=== PATIENT | female | born 1980 | race Caucasian/White ===

== ENCOUNTER 2021-09-06 15:36 | Emergency (ER) | payer OTHER ==
[~2021-09-06] VITALS: Ht 170.2 cm; Wt 63.6 kg
[2021-09-06 16:17] VITALS: BP 101/64
[2021-09-06] MEDS ORDERED: ACETAMINOPHEN 500 MG TABLET PO ONE (16:30)
== END 2021-09-06 17:21 | disposition home or self-care (01) ==
LOC: EMS 15:39
DX: R07.2 Precordial pain (principal); F11.90 Opioid use, unspecified, uncomplicated; Z90.89 Acquired absence of other organs; Z87.891 Personal history of nicotine dependence; Z88.6 Allergy status to analgesic agent
CPT/HCPCS: 71045; 93005; 99283

== ENCOUNTER 2021-12-19 08:07 | Inpatient (IN) | payer MEDICAID, OTHER ==
[~2021-12-19] VITALS: Ht 170.2 cm; Wt 80.1 kg
[2021-12-19] MEDS ORDERED: HALOPERIDOL 5 MG TABLET PO ONE (09:15)
[2021-12-19] MEDS ORDERED: LORazepam 1 MG TABLET PO ONE (09:15)
[2021-12-19 10:12] LABS: BASOPHILS % (AUTO) 0.3 % (0.0-2.0); EOSINOPHILS % (AUTO) 1.4 % (1.0-6.0); HEMATOCRIT 33.2 % (36-46); LYMPHOCYTES # (AUTO) 1.4 K/uL (1.0-4.8); LYMPHOCYTES % (AUTO) 20.1 % (22.0-44.0); MEAN CORPUSCULAR HEMOGLOBIN 29.6 pg (26.0-34.0); MEAN CORPUSCULAR HGB CONC 33.1 G/dL (31.0-37.0); MEAN CORPUSCULAR VOLUME 90 fL (80-100); MONOCYTES # (AUTO) 0.8 K/uL (0.1-1.0); MONOCYTES % (AUTO) 10.9 % (2.0-9.0); NEUTROPHILS # (AUTO) 4.7 K/uL (1.8-7.7); NEUTROPHILS % (AUTO) 67.3 % (40.0-70.0); PLATELET COUNT (AUTO) 281 K/uL (150-450); RED CELL DISTRIBUTION WIDTH 16.2 % (11.5-14.5)
[2021-12-19] MEDS ORDERED: TUBERCULIN, PURIFIED PROTEIN DERIVATIVE 5 TU/0.1 ML SYRINGE ID ONE (10:15)
[2021-12-19] MEDS ORDERED: HydrOXYzine PAMOATE 50 MG CAPSULE PO PRN (10:15)
[2021-12-19] MEDS ORDERED: PROMETHAZINE HCL 25 MG TABLET PO PRN (10:15)
[2021-12-19] MEDS ORDERED: GuaiFENesin/D-METHORPHAN [SUGAR-FREE] 200-20MG/10 ML SYRUP UDCUP PO PRN (10:15)
[2021-12-19 10:22] LABS: ANION GAP 9 mmol/L (8-16); CALCIUM, TOTAL 8.7 mg/dL (8.8-10.5); CARBON DIOXIDE 28 mmol/L (22-29); CHLORIDE 103 mmol/L (98-107); CREATININE 0.81 mg/dL (0.60-1.30); GLUCOSE,RANDOM 98 mg/dL (70-110); POTASSIUM 3.6 mmol/L (3.5-5.1); SODIUM SERUM 140 mmol/L (136-145); UREA NITROGEN, BLOOD 17 mg/dL (7-18)
[2021-12-19 10:23] LABS: GLOMERULAR FILTR. RATE CALC > 60 mL/min (>60)
[2021-12-19 10:27] LABS: ALANINE AMINOTRANSFERASE 28 U/L (12-78); ALBUMIN 3.8 g/dL (3.4-5.0); ASPARTATE AMINOTRANSFERASE 19 U/L (15-37); BILIRUBIN,TOTAL 0.2 mg/dL (0.1-1.0)
[2021-12-19 10:35] LABS: COVID AG,FIA SOURCE NASOPHARYNGEAL
[2021-12-19 10:38] LABS: ALKALINE PHOSPHATASE 88 U/L (46-116); TOTAL PROTEIN, SERUM 7.9 g/dL (6.4-8.2)
[2021-12-19 13:00] VITALS: BP 109/71
[2021-12-19 16:13] VITALS: BP 102/47
[2021-12-19] MEDS: THIAMINE 100 MG TABLET PO SCH (18:49)
[2021-12-19] MEDS: MELATONIN 5 MG TABLET PO SCH (20:32)
[2021-12-19] MEDS: DIVALPROEX SODIUM 500 MG ER TABLET PO SCH (20:32)
[2021-12-19] MEDS ORDERED: OLANZapine 5 MG RAPDIS TABLET PO SCH (21:00)
[2021-12-20 06:59] LABS: HEMOGLOBIN A1C 5.5 % (3.8-5.6)
[2021-12-20 07:22] LABS: CHOL/HDL RATIO 2.7 (3.9-5.7); FREE T4 (FREE THYROXINE) 0.96 ng/dL (0.76-1.46); THYROID STIMULATING HORMONE 1.93 uIU/mL (0.36-3.74)
[2021-12-20 08:00] VITALS: BP 98/48
[2021-12-20] MEDS: OMEGA-3/DHA/EPA/FISH OIL 1,000 MG CAPSULE PO SCH (10:01)
[2021-12-20] MEDS: MULTIVITAMINS WITH MINERALS, THERAPEUTIC TABLET PO SCH (10:01)
[2021-12-20] MEDS: THIAMINE 100 MG TABLET PO SCH ×2 (10:01→16:17)
[2021-12-20] MEDS: NALTREXONE HCL 50 MG TABLET PO SCH (10:02)
[2021-12-20] MEDS: FOLIC ACID 1 MG TABLET PO SCH (10:02)
[2021-12-20 16:07] VITALS: BP 100/63
[2021-12-20] MEDS: LORazepam 2 MG TABLET PO PRN (19:10)
[2021-12-20] MEDS: DIVALPROEX SODIUM 500 MG ER TABLET PO SCH (20:20)
[2021-12-20] MEDS: MELATONIN 5 MG TABLET PO SCH (20:20)
[2021-12-20] MEDS: OLANZapine 10 MG RAPDIS TABLET PO SCH (20:21)
[2021-12-20] MEDS: ZOLPIDEM TARTRATE 10 MG TABLET PO PRN (23:12)
[2021-12-21] MEDS: LORazepam 2 MG TABLET PO PRN ×2 (00:30→16:21)
[2021-12-21] MEDS: FOLIC ACID 1 MG TABLET PO SCH (09:14)
[2021-12-21] MEDS: OMEGA-3/DHA/EPA/FISH OIL 1,000 MG CAPSULE PO SCH (09:14)
[2021-12-21] MEDS: MULTIVITAMINS WITH MINERALS, THERAPEUTIC TABLET PO SCH (09:14)
[2021-12-21] MEDS: THIAMINE 100 MG TABLET PO SCH ×2 (09:14→17:32)
[2021-12-21] MEDS: NALTREXONE HCL 50 MG TABLET PO SCH (09:15)
[2021-12-21 09:25] VITALS: BP 101/79
[2021-12-21] MEDS: OLANZapine 10 MG RAPDIS TABLET PO SCH (20:59)
[2021-12-21] MEDS: MELATONIN 5 MG TABLET PO SCH (20:59)
[2021-12-21] MEDS: DIVALPROEX SODIUM 500 MG ER TABLET PO SCH (20:59)
[2021-12-21] MEDS: ZOLPIDEM TARTRATE 10 MG TABLET PO PRN (22:34)
[2021-12-22 08:30] VITALS: BP 132/78
[2021-12-22] MEDS ORDERED: FLUoxetine HCL 20 MG CAPSULE PO SCH (09:00)
[2021-12-22] MEDS: FOLIC ACID 1 MG TABLET PO SCH (09:09)
[2021-12-22] MEDS: THIAMINE 100 MG TABLET PO SCH ×2 (09:09→16:28)
[2021-12-22] MEDS: OMEGA-3/DHA/EPA/FISH OIL 1,000 MG CAPSULE PO SCH (09:09)
[2021-12-22] MEDS: MULTIVITAMINS WITH MINERALS, THERAPEUTIC TABLET PO SCH (09:09)
[2021-12-22] MEDS: NALTREXONE HCL 50 MG TABLET PO SCH (09:10)
[2021-12-22] MEDS: LORazepam 2 MG TABLET PO PRN (12:43)
[2021-12-22 16:17] VITALS: BP 121/80
[2021-12-22] MEDS: DIVALPROEX SODIUM 500 MG ER TABLET PO SCH (20:32)
[2021-12-22] MEDS: MELATONIN 5 MG TABLET PO SCH (20:32)
[2021-12-22] MEDS: OLANZapine 10 MG RAPDIS TABLET PO SCH (20:33)
[2021-12-23] MEDS: MULTIVITAMINS WITH MINERALS, THERAPEUTIC TABLET PO SCH (08:38)
[2021-12-23] MEDS: FOLIC ACID 1 MG TABLET PO SCH (08:39)
[2021-12-23] MEDS: OMEGA-3/DHA/EPA/FISH OIL 1,000 MG CAPSULE PO SCH (08:39)
[2021-12-23] MEDS: NALTREXONE HCL 50 MG TABLET PO SCH (08:39)
[2021-12-23] MEDS: THIAMINE 100 MG TABLET PO SCH ×2 (08:39→16:54)
[2021-12-23] MEDS: FLUoxetine HCL 20 MG CAPSULE PO SCH (08:40)
[2021-12-23 09:04] VITALS: BP 113/71
[2021-12-23] MEDS: LORazepam 2 MG TABLET PO PRN (14:37)
[2021-12-23 16:16] VITALS: BP 110/71
[2021-12-23] MEDS: MELATONIN 5 MG TABLET PO SCH (20:27)
[2021-12-23] MEDS: DIVALPROEX SODIUM 500 MG ER TABLET PO SCH (20:27)
[2021-12-23] MEDS: OLANZapine 10 MG RAPDIS TABLET PO SCH (20:27)
[2021-12-23] MEDS: ZOLPIDEM TARTRATE 10 MG TABLET PO PRN (21:32)
[2021-12-24 08:00] VITALS: BP 104/65
[2021-12-24] MEDS: NALTREXONE HCL 50 MG TABLET PO SCH (08:18)
[2021-12-24] MEDS: THIAMINE 100 MG TABLET PO SCH ×2 (08:18→16:13)
[2021-12-24] MEDS: FLUoxetine HCL 20 MG CAPSULE PO SCH (08:18)
[2021-12-24] MEDS: MULTIVITAMINS WITH MINERALS, THERAPEUTIC TABLET PO SCH (08:18)
[2021-12-24] MEDS: FOLIC ACID 1 MG TABLET PO SCH (08:18)
[2021-12-24] MEDS: OMEGA-3/DHA/EPA/FISH OIL 1,000 MG CAPSULE PO SCH (08:18)
[2021-12-24 16:00] VITALS: BP 115/71
[2021-12-24] MEDS: LORazepam 2 MG TABLET PO PRN (16:13)
[2021-12-24] MEDS: TraZODone HCL 100 MG TABLET PO SCH ×2 (20:23→21:53)
[2021-12-24] MEDS: MELATONIN 5 MG TABLET PO SCH (20:23)
[2021-12-24] MEDS: OLANZapine 10 MG RAPDIS TABLET PO SCH (20:24)
[2021-12-24] MEDS: DIVALPROEX SODIUM 500 MG ER TABLET PO SCH (20:24)
[2021-12-25 06:47] LABS: COVID AG,FIA SOURCE NASAL SWAB
[2021-12-25] MEDS: LORazepam 2 MG TABLET PO PRN (07:13)
[2021-12-25 08:00] VITALS: BP 101/69
[2021-12-25] MEDS: OMEGA-3/DHA/EPA/FISH OIL 1,000 MG CAPSULE PO SCH (09:02)
[2021-12-25] MEDS: THIAMINE 100 MG TABLET PO SCH ×2 (09:02→16:40)
[2021-12-25] MEDS: FLUoxetine HCL 20 MG CAPSULE PO SCH (09:02)
[2021-12-25] MEDS: MULTIVITAMINS WITH MINERALS, THERAPEUTIC TABLET PO SCH (09:03)
[2021-12-25] MEDS: LORATADINE 10 MG TABLET PO SCH (09:03)
[2021-12-25] MEDS: FOLIC ACID 1 MG TABLET PO SCH (09:03)
[2021-12-25] MEDS: NALTREXONE HCL 50 MG TABLET PO SCH (09:03)
[2021-12-25 16:00] VITALS: BP 114/80
[2021-12-25 18:06] VITALS: BP 119/79
[2021-12-25] MEDS: LORazepam 0.5 MG TABLET PO PRN (18:06)
[2021-12-25] MEDS: ZOLPIDEM TARTRATE 10 MG TABLET PO PRN (21:14)
[2021-12-25] MEDS: DIVALPROEX SODIUM 500 MG ER TABLET PO SCH (21:25)
[2021-12-25] MEDS: OLANZapine 10 MG RAPDIS TABLET PO SCH (21:26)
[2021-12-25] MEDS: TraZODone HCL 100 MG TABLET PO SCH (21:26)
[2021-12-25] MEDS: MELATONIN 5 MG TABLET PO SCH (21:26)
[2021-12-26 04:25] VITALS: BP 98/56
[2021-12-26 08:00] VITALS: BP 138/89
[2021-12-26] MEDS: OMEGA-3/DHA/EPA/FISH OIL 1,000 MG CAPSULE PO SCH (08:52)
[2021-12-26] MEDS: OLANZapine 5 MG RAPDIS TABLET PO PRN ×2 (08:52→13:58)
[2021-12-26] MEDS: FOLIC ACID 1 MG TABLET PO SCH (08:52)
[2021-12-26] MEDS: MULTIVITAMINS WITH MINERALS, THERAPEUTIC TABLET PO SCH (08:52)
[2021-12-26] MEDS: LORATADINE 10 MG TABLET PO SCH (08:52)
[2021-12-26] MEDS: LORazepam 0.5 MG TABLET PO PRN ×3 (08:52→22:41)
[2021-12-26] MEDS: THIAMINE 100 MG TABLET PO SCH ×2 (08:53→16:35)
[2021-12-26] MEDS: FLUoxetine HCL 20 MG CAPSULE PO SCH (08:53)
[2021-12-26] MEDS: NALTREXONE HCL 50 MG TABLET PO SCH (08:56)
[2021-12-26] MEDS: IBUPROFEN 600 MG TABLET PO PRN (11:45)
[2021-12-26] MEDS: BENZOCAINE 10% 7 GM GEL TP PRN (13:58)
[2021-12-26 16:00] VITALS: BP 95/69
[2021-12-26] MEDS: LURASIDONE HCL 40 MG TABLET PO SCH (17:18)
[2021-12-26] MEDS: DIVALPROEX SODIUM 500 MG ER TABLET PO SCH (20:11)
[2021-12-26] MEDS: MELATONIN 5 MG TABLET PO SCH (20:11)
[2021-12-26] MEDS: TraZODone HCL 100 MG TABLET PO SCH ×2 (20:14→21:14)
[2021-12-26 22:04] VITALS: BP 110/70
[2021-12-27] MEDS: OLANZapine 5 MG RAPDIS TABLET PO PRN ×2 (03:34→08:30)
[2021-12-27] MEDS: FOLIC ACID 1 MG TABLET PO SCH (08:26)
[2021-12-27] MEDS: OMEGA-3/DHA/EPA/FISH OIL 1,000 MG CAPSULE PO SCH (08:26)
[2021-12-27] MEDS: MULTIVITAMINS WITH MINERALS, THERAPEUTIC TABLET PO SCH (08:26)
[2021-12-27] MEDS: LORazepam 0.5 MG TABLET PO PRN ×2 (08:26→14:43)
[2021-12-27] MEDS: FLUoxetine HCL 20 MG CAPSULE PO SCH (08:26)
[2021-12-27] MEDS: NALTREXONE HCL 50 MG TABLET PO SCH (08:26)
[2021-12-27] MEDS: LORATADINE 10 MG TABLET PO SCH (08:26)
[2021-12-27] MEDS: THIAMINE 100 MG TABLET PO SCH ×2 (08:26→16:15)
[2021-12-27] MEDS ORDERED: BuPROPion HCL XL 150 MG ER TABLET PO SCH (09:00)
[2021-12-27 09:21] VITALS: BP 116/64
[2021-12-27] MEDS: BENZOCAINE 10% 7 GM GEL TP PRN ×2 (09:24→17:50)
[2021-12-27] MEDS: IBUPROFEN 600 MG TABLET PO PRN ×2 (09:24→20:07)
[2021-12-27 16:00] VITALS: BP 113/65
[2021-12-27] MEDS: LURASIDONE HCL 40 MG TABLET PO SCH (16:15)
[2021-12-27] MEDS ORDERED: LURASIDONE HCL 20 MG TABLET PO PRN (17:45)
[2021-12-27] MEDS: MELATONIN 5 MG TABLET PO SCH (20:04)
[2021-12-27] MEDS: TraZODone HCL 100 MG TABLET PO SCH (20:04)
[2021-12-27] MEDS: DIVALPROEX SODIUM 500 MG ER TABLET PO SCH (20:04)
[2021-12-27 21:00] LABS: APPEARANCE,URINE CLEAR (CLEAR); BILIRUBIN,URINE NEGATIVE (NEGATIVE); GLUCOSE, URINE (UA) NEGATIVE (NEGATIVE); KETONES,URINE TRACE mg/dL (NEGATIVE); LEUKOCYTE ESTERASE ,URINE LARGE (NEGATIVE); NITRATE,URINE NEGATIVE (NEGATIVE); OCCULT BLOOD,URINE NEGATIVE (NEGATIVE); PH,URINE 6.5 (5.0-8.0); PROTEIN,URINE NEGATIVE (NEGATIVE); SPECIFIC GRAVITIY, URINE 1.016 (1.003-1.030); UROBILINOGEN,URINE <=1.0 mg/dL (<=1.0)
[2021-12-27 21:09] LABS: BACTERIA,URINE Few /HPF (None Seen); RBC,URINE 0-2 /HPF (0-2); SQUAMOUS EPITHELIAL CELL,UR Moderate /LPF (None Seen); WBC,URINE 26-50 /HPF (0-5)
[2021-12-28] MEDS: LORazepam 0.5 MG TABLET PO PRN ×3 (00:10→14:50)
[2021-12-28] MEDS: BENZOCAINE 10% 7 GM GEL TP PRN ×2 (04:39→12:30)
[2021-12-28 06:40] VITALS: BP 120/70
[2021-12-28] MEDS: IBUPROFEN 600 MG TABLET PO PRN ×3 (06:45→19:44)
[2021-12-28 07:45] VITALS: BP 100/62
[2021-12-28] MEDS: THIAMINE 100 MG TABLET PO SCH ×2 (08:23→17:01)
[2021-12-28] MEDS: BuPROPion HCL XL 150 MG ER TABLET PO SCH (08:24)
[2021-12-28] MEDS: FLUoxetine HCL 20 MG CAPSULE PO SCH (08:24)
[2021-12-28] MEDS: MULTIVITAMINS WITH MINERALS, THERAPEUTIC TABLET PO SCH (08:24)
[2021-12-28] MEDS: OMEGA-3/DHA/EPA/FISH OIL 1,000 MG CAPSULE PO SCH (08:24)
[2021-12-28] MEDS: FOLIC ACID 1 MG TABLET PO SCH (08:24)
[2021-12-28] MEDS: LORATADINE 10 MG TABLET PO SCH (08:24)
[2021-12-28] MEDS: NALTREXONE HCL 50 MG TABLET PO SCH (08:24)
[2021-12-28 13:04] VITALS: BP 116/74
[2021-12-28 16:44] VITALS: BP 109/60
[2021-12-28] MEDS ORDERED: LURASIDONE HCL 60 MG TABLET PO SCH (17:30)
[2021-12-28] MEDS ORDERED: ACETAMINOPHEN 325 MG TABLET PO PRN (19:15)
[2021-12-28] MEDS: TraZODone HCL 100 MG TABLET PO SCH (20:06)
[2021-12-28] MEDS: MELATONIN 5 MG TABLET PO SCH (20:06)
[2021-12-28] MEDS: DIVALPROEX SODIUM 500 MG ER TABLET PO SCH (20:07)
[2021-12-28] MEDS: MAGNESIUM HYDROXIDE SUSPENSION 30 ML UDCUP PO PRN (20:42)
[2021-12-28] MEDS: ZOLPIDEM TARTRATE 10 MG TABLET PO PRN (21:55)
[2021-12-29] MEDS: LORazepam 0.5 MG TABLET PO PRN ×3 (03:47→18:45)
[2021-12-29] MEDS: NALTREXONE HCL 50 MG TABLET PO SCH (08:13)
[2021-12-29] MEDS: OMEGA-3/DHA/EPA/FISH OIL 1,000 MG CAPSULE PO SCH (08:13)
[2021-12-29] MEDS: DOCUSATE SODIUM 250 MG CAPSULE PO SCH (08:13)
[2021-12-29] MEDS: LORATADINE 10 MG TABLET PO SCH (08:13)
[2021-12-29] MEDS: BuPROPion HCL XL 150 MG ER TABLET PO SCH (08:13)
[2021-12-29] MEDS: FOLIC ACID 1 MG TABLET PO SCH (08:13)
[2021-12-29] MEDS: THIAMINE 100 MG TABLET PO SCH (08:14)
[2021-12-29] MEDS: FLUoxetine HCL 20 MG CAPSULE PO SCH (08:14)
[2021-12-29] MEDS: MULTIVITAMINS WITH MINERALS, THERAPEUTIC TABLET PO SCH (08:14)
[2021-12-29] MEDS: BENZOCAINE 10% 7 GM GEL TP PRN (08:15)
[2021-12-29 08:17] VITALS: BP 106/71
[2021-12-29] MEDS: IBUPROFEN 600 MG TABLET PO PRN ×2 (08:17→14:31)
[2021-12-29 08:23] VITALS: BP 106/71
[2021-12-29 09:17] VITALS: BP 110/74
[2021-12-29 14:31] VITALS: BP 116/72
[2021-12-29] MEDS: MAGNESIUM HYDROXIDE SUSPENSION 30 ML UDCUP PO PRN (16:34)
[2021-12-29 17:01] VITALS: BP 122/71
[2021-12-29] MEDS: LURASIDONE HCL 80 MG TABLET PO SCH (18:43)
[2021-12-29] MEDS: DIVALPROEX SODIUM 500 MG ER TABLET PO SCH (20:23)
[2021-12-29] MEDS: MELATONIN 5 MG TABLET PO SCH (20:23)
[2021-12-29] MEDS: TraZODone HCL 100 MG TABLET PO SCH (20:24)
[2021-12-29] MEDS: ZOLPIDEM TARTRATE 10 MG TABLET PO PRN (20:24)
[2021-12-30] MEDS: LORazepam 0.5 MG TABLET PO PRN ×3 (00:11→14:14)
[2021-12-30 01:20] VITALS: BP 109/67
[2021-12-30] MEDS: IBUPROFEN 600 MG TABLET PO PRN ×2 (01:26→10:29)
[2021-12-30] MEDS: BuPROPion HCL XL 150 MG ER TABLET PO SCH (08:03)
[2021-12-30] MEDS: NALTREXONE HCL 50 MG TABLET PO SCH (08:03)
[2021-12-30] MEDS: FLUoxetine HCL 20 MG CAPSULE PO SCH (08:03)
[2021-12-30] MEDS: LORATADINE 10 MG TABLET PO SCH (08:03)
[2021-12-30] MEDS: DOCUSATE SODIUM 250 MG CAPSULE PO SCH (08:03)
[2021-12-30] MEDS: MULTIVITAMINS WITH MINERALS, THERAPEUTIC TABLET PO SCH (08:03)
[2021-12-30] MEDS: OMEGA-3/DHA/EPA/FISH OIL 1,000 MG CAPSULE PO SCH (08:03)
[2021-12-30 10:07] VITALS: BP 114/77
[2021-12-30] MEDS: BENZOCAINE 10% 7 GM GEL TP PRN ×2 (10:29→23:34)
[2021-12-30 11:29] VITALS: BP 110/78
[2021-12-30] MEDS: NICOTINE 21 MG/24 HOUR PATCH TD SCH (11:39)
[2021-12-30] MEDS ORDERED: DOCUSATE SODIUM 250 MG CAPSULE PO SCH (11:45)
[2021-12-30] MEDS: LURASIDONE HCL 80 MG TABLET PO SCH (15:49)
[2021-12-30] MEDS: MAGNESIUM HYDROXIDE SUSPENSION 30 ML UDCUP PO PRN (15:49)
[2021-12-30 16:27] VITALS: BP 93/60
[2021-12-30] MEDS: GABAPENTIN 100 MG CAPSULE PO SCH ×2 (18:37→20:10)
[2021-12-30] MEDS: TraZODone HCL 100 MG TABLET PO SCH (20:10)
[2021-12-30] MEDS: DIVALPROEX SODIUM 500 MG ER TABLET PO SCH (20:10)
[2021-12-30] MEDS: MELATONIN 5 MG TABLET PO SCH (20:12)
[2021-12-30] MEDS: ZOLPIDEM TARTRATE 10 MG TABLET PO PRN (20:13)
[2021-12-31 05:48] VITALS: BP 94/60
[2021-12-31] MEDS: LORATADINE 10 MG TABLET PO SCH (08:13)
[2021-12-31] MEDS: NALTREXONE HCL 50 MG TABLET PO SCH (08:13)
[2021-12-31] MEDS: NICOTINE 21 MG/24 HOUR PATCH TD SCH (08:14)
[2021-12-31] MEDS: DOCUSATE SODIUM 250 MG CAPSULE PO SCH (08:14)
[2021-12-31] MEDS: MULTIVITAMINS WITH MINERALS, THERAPEUTIC TABLET PO SCH (08:14)
[2021-12-31] MEDS: GABAPENTIN 100 MG CAPSULE PO SCH ×4 (08:14→21:22)
[2021-12-31] MEDS: BuPROPion HCL XL 150 MG ER TABLET PO SCH (08:14)
[2021-12-31] MEDS: FLUoxetine HCL 20 MG CAPSULE PO SCH (08:14)
[2021-12-31] MEDS: OMEGA-3/DHA/EPA/FISH OIL 1,000 MG CAPSULE PO SCH (08:15)
[2021-12-31 08:27] VITALS: BP 107/77
[2021-12-31] MEDS: IBUPROFEN 600 MG TABLET PO PRN (08:27)
[2021-12-31] MEDS: BENZOCAINE 10% 7 GM GEL TP PRN (08:28)
[2021-12-31] MEDS: MAGNESIUM HYDROXIDE SUSPENSION 30 ML UDCUP PO PRN (09:10)
[2021-12-31 09:27] VITALS: BP 102/68
[2021-12-31 16:30] VITALS: BP 117/78
[2021-12-31] MEDS: LURASIDONE HCL 80 MG TABLET PO SCH (16:33)
[2021-12-31] MEDS: DIVALPROEX SODIUM 500 MG ER TABLET PO SCH (21:22)
[2021-12-31] MEDS: MELATONIN 5 MG TABLET PO SCH (21:22)
[2021-12-31] MEDS: TraZODone HCL 100 MG TABLET PO SCH (21:22)
[2022-01-01 02:00] VITALS: BP 158/78
[2022-01-01] MEDS: ZOLPIDEM TARTRATE 10 MG TABLET PO PRN ×2 (02:04→22:39)
[2022-01-01 06:57] LABS: COVID AG,FIA SOURCE NASAL SWAB
[2022-01-01] MEDS: BuPROPion HCL XL 150 MG ER TABLET PO SCH (08:52)
[2022-01-01] MEDS: GABAPENTIN 100 MG CAPSULE PO SCH ×4 (08:52→20:43)
[2022-01-01] MEDS: MULTIVITAMINS WITH MINERALS, THERAPEUTIC TABLET PO SCH (08:52)
[2022-01-01] MEDS: FLUoxetine HCL 20 MG CAPSULE PO SCH (08:52)
[2022-01-01] MEDS: LORATADINE 10 MG TABLET PO SCH (08:52)
[2022-01-01] MEDS: DOCUSATE SODIUM 250 MG CAPSULE PO SCH (08:52)
[2022-01-01] MEDS: OMEGA-3/DHA/EPA/FISH OIL 1,000 MG CAPSULE PO SCH (08:52)
[2022-01-01] MEDS: NALTREXONE HCL 50 MG TABLET PO SCH (08:53)
[2022-01-01] MEDS: NICOTINE 21 MG/24 HOUR PATCH TD SCH (08:53)
[2022-01-01 09:44] VITALS: BP 108/69
[2022-01-01] MEDS: IBUPROFEN 600 MG TABLET PO PRN (10:34)
[2022-01-01] MEDS: BENZOCAINE 10% 7 GM GEL TP PRN (10:34)
[2022-01-01 16:18] VITALS: BP 130/76
[2022-01-01] MEDS: LURASIDONE HCL 80 MG TABLET PO SCH (16:41)
[2022-01-01] MEDS: TraZODone HCL 100 MG TABLET PO SCH (20:43)
[2022-01-01] MEDS: MELATONIN 5 MG TABLET PO SCH (20:43)
[2022-01-01] MEDS: DIVALPROEX SODIUM 500 MG ER TABLET PO SCH (20:43)
[2022-01-02 08:30] VITALS: BP 112/64
[2022-01-02] MEDS: NALTREXONE HCL 50 MG TABLET PO SCH (08:39)
[2022-01-02] MEDS: OMEGA-3/DHA/EPA/FISH OIL 1,000 MG CAPSULE PO SCH (08:39)
[2022-01-02] MEDS: NICOTINE 21 MG/24 HOUR PATCH TD SCH ×2 (08:39→09:00)
[2022-01-02] MEDS: FLUoxetine HCL 20 MG CAPSULE PO SCH (08:39)
[2022-01-02] MEDS: DOCUSATE SODIUM 250 MG CAPSULE PO SCH (08:39)
[2022-01-02] MEDS: LORATADINE 10 MG TABLET PO SCH (08:39)
[2022-01-02] MEDS: MULTIVITAMINS WITH MINERALS, THERAPEUTIC TABLET PO SCH (08:39)
[2022-01-02] MEDS: GABAPENTIN 100 MG CAPSULE PO SCH ×4 (08:40→21:58)
[2022-01-02] MEDS: BuPROPion HCL XL 150 MG ER TABLET PO SCH (08:40)
[2022-01-02] MEDS: BENZOCAINE 10% 7 GM GEL TP PRN (13:05)
[2022-01-02] MEDS: IBUPROFEN 600 MG TABLET PO PRN (13:05)
[2022-01-02 13:06] VITALS: BP 126/67
[2022-01-02 16:10] VITALS: BP 120/79
[2022-01-02] MEDS: LURASIDONE HCL 80 MG TABLET PO SCH (17:08)
[2022-01-02] MEDS: TraZODone HCL 100 MG TABLET PO SCH (20:23)
[2022-01-02] MEDS: DIVALPROEX SODIUM 500 MG ER TABLET PO SCH (20:23)
[2022-01-02] MEDS: MELATONIN 5 MG TABLET PO SCH (20:24)
[2022-01-02] MEDS: ZOLPIDEM TARTRATE 10 MG TABLET PO PRN (20:52)
[2022-01-03 08:00] VITALS: BP 98/74
[2022-01-03] MEDS: NICOTINE 21 MG/24 HOUR PATCH TD SCH (09:00)
[2022-01-03] MEDS: FLUoxetine HCL 20 MG CAPSULE PO SCH (11:11)
[2022-01-03] MEDS: NALTREXONE HCL 50 MG TABLET PO SCH (11:11)
[2022-01-03] MEDS: DOCUSATE SODIUM 250 MG CAPSULE PO SCH (11:12)
[2022-01-03] MEDS: OMEGA-3/DHA/EPA/FISH OIL 1,000 MG CAPSULE PO SCH (11:12)
[2022-01-03] MEDS: MULTIVITAMINS WITH MINERALS, THERAPEUTIC TABLET PO SCH (11:12)
[2022-01-03] MEDS: GABAPENTIN 100 MG CAPSULE PO SCH ×4 (11:12→20:45)
[2022-01-03] MEDS: BuPROPion HCL XL 150 MG ER TABLET PO SCH (11:13)
[2022-01-03] MEDS: LORATADINE 10 MG TABLET PO SCH (11:13)
[2022-01-03] MEDS: LURASIDONE HCL 80 MG TABLET PO SCH (16:09)
[2022-01-03 18:09] VITALS: BP 106/71
[2022-01-03] MEDS: MELATONIN 5 MG TABLET PO SCH (20:45)
[2022-01-03] MEDS: DIVALPROEX SODIUM 500 MG ER TABLET PO SCH (20:45)
[2022-01-03] MEDS: TraZODone HCL 100 MG TABLET PO SCH (20:45)
[2022-01-03] MEDS: ZOLPIDEM TARTRATE 10 MG TABLET PO PRN (23:14)
[2022-01-04 08:06] VITALS: BP 98/71
[2022-01-04] MEDS: DOCUSATE SODIUM 250 MG CAPSULE PO SCH (08:30)
[2022-01-04] MEDS: MULTIVITAMINS WITH MINERALS, THERAPEUTIC TABLET PO SCH (08:31)
[2022-01-04] MEDS: NALTREXONE HCL 50 MG TABLET PO SCH (08:31)
[2022-01-04] MEDS: FLUoxetine HCL 20 MG CAPSULE PO SCH (08:31)
[2022-01-04] MEDS: LORATADINE 10 MG TABLET PO SCH (08:31)
[2022-01-04] MEDS: OMEGA-3/DHA/EPA/FISH OIL 1,000 MG CAPSULE PO SCH (08:31)
[2022-01-04] MEDS: BuPROPion HCL XL 150 MG ER TABLET PO SCH (08:31)
[2022-01-04] MEDS: NICOTINE 21 MG/24 HOUR PATCH TD SCH ×2 (08:31→09:00)
[2022-01-04] MEDS: GABAPENTIN 300 MG CAPSULE PO SCH ×2 (08:32→13:39)
[2022-01-04] MEDS ORDERED: BUPR-49 PO (10:58)
[2022-01-04] MEDS ORDERED: PROZ20 PO (10:58)
[2022-01-04] MEDS ORDERED: TRAZ-257 PO (10:58)
[2022-01-04] MEDS ORDERED: LURA60TA PO (10:58)
[2022-01-04] MEDS ORDERED: GABA-1181 PO (10:58)
[2022-01-04] MEDS ORDERED: DIVA-80 PO (10:58)
[2022-01-04] MEDS ORDERED: OMEG-135 PO (10:58)
[2022-01-04] MEDS ORDERED: MELA5TAB40 PO (10:58)
[2022-01-04] MEDS ORDERED: NALT50TA PO (10:58)
[2022-01-04] MEDS ORDERED: DOCU-350 PO (14:01)
[2022-01-04] MEDS ORDERED: LORA10TA7 PO (14:01)
[2022-01-04] MEDS ORDERED: LURASIDONE HCL 40 MG TABLET PO SCH (17:30)
[2022-01-04] MEDS ORDERED: LURASIDONE HCL 60 MG TABLET PO SCH (17:30)
== END 2022-01-04 15:00 | disposition home or self-care (01) | DRG 751 ==
LOC: EMS 08:09 → 3EI 11:27
PROVIDERS: ADMIT Psychiatry & Neurology Psychiatry; ATTEND Psychiatry & Neurology Psychiatry
DX: F33.3 Major depressive disorder, recurrent, severe with psychotic symptoms (principal); R45.851 Suicidal ideations; Z91.19 Patient's noncompliance with other medical treatment and regimen; Z20.822 Contact with and (suspected) exposure to COVID-19; F41.9 Anxiety disorder, unspecified; F90.9 Attention-deficit hyperactivity disorder, unspecified type; G47.00 Insomnia, unspecified; Z55.9 Problems related to education and literacy, unspecified; Z59.9 Problem related to housing and economic circumstances, unspecified; Z63.9 Problem related to primary support group, unspecified; Z65.3 Problems related to other legal circumstances; Z91.51 Personal history of suicidal behavior; Z88.8 Allergy status to other drugs, medicaments and biological substances
CPT/HCPCS: 80053; 80061; 80164; 81001; 83036; 84439; 84443; 84703; 85025; 86592; 87086; 99285; G0480; Q9967

== ENCOUNTER 2023-02-01 12:57 | Inpatient (IN) | payer MEDICAID ==
[~2023-02-01] VITALS: Ht 172.7 cm; Wt 81.6 kg
[~2023-02-01 12:57] MED LIST: BUPR-49 PO; DIVA500T53 PO; DOCU-412 PO; GABA-1181 PO; LORA10TA7 PO; LURA60TA PO; MELA5TAB40 PO; NALT50TA PO; OMEG-135 PO; PROZ20 PO; TRAZ-257 PO
[2023-02-01] MEDS ORDERED: ZOLPIDEM TARTRATE 10 MG TABLET PO PRN (13:30)
[2023-02-01 14:38] VITALS: BP 106/65; PULSE 83; RESP 16; TEMP 97.6
[2023-02-01 16:37] VITALS: BP 106/77; PULSE 82; RESP 18; TEMP 97.8; O2SAT 99
[2023-02-01 21:07] VITALS: BP 126/84; PULSE 84; RESP 18; TEMP 97.5; O2SAT 99
[2023-02-02 06:44] VITALS: BP 108/72; PULSE 70; RESP 18; TEMP 97.5; O2SAT 100
[2023-02-02] MEDS: LORazepam 2 MG TABLET PO PRN ×4 (06:44→21:56)
[2023-02-02 07:54] LABS: BASOPHILS % (AUTO) 0.2 % (0.0-2.0); EOSINOPHILS % (AUTO) 0.1 % (1.0-6.0); HEMATOCRIT 32.4 % (36-46); HEMOGLOBIN 10.8 g/dL (12.0-16.0); LYMPHOCYTES # (AUTO) 1.4 K/uL (1.0-4.8); LYMPHOCYTES % (AUTO) 28.8 % (22.0-44.0); MEAN CORPUSCULAR HEMOGLOBIN 30.3 pg (26.0-34.0); MEAN CORPUSCULAR HGB CONC 33.2 G/dL (31.0-37.0); MEAN CORPUSCULAR VOLUME 91 fL (80-100); MONOCYTES # (AUTO) 0.4 K/uL (0.1-1.0); MONOCYTES % (AUTO) 7.6 % (2.0-9.0); NEUTROPHILS # (AUTO) 3.1 K/uL (1.8-7.7); NEUTROPHILS % (AUTO) 63.3 % (40.0-70.0); PLATELET COUNT (AUTO) 338 K/uL (150-450); RED BLOOD CELL COUNT(AUTO) 3.55 MIL/uL (4.00-5.20); RED CELL DISTRIBUTION WIDTH 14.3 % (11.5-14.5); WHITE BLOOD COUNT (AUTO) 4.8 K/uL (4.5-11.0)
[2023-02-02 08:16] LABS: ALANINE AMINOTRANSFERASE 22 U/L (12-78); ALBUMIN 3.4 g/dL (3.4-5.0); ALKALINE PHOSPHATASE 72 U/L (46-116); ANION GAP 8 mmol/L (8-16); ASPARTATE AMINOTRANSFERASE 18 U/L (15-37); BILIRUBIN,TOTAL 0.3 mg/dL (0.1-1.0); CARBON DIOXIDE 28 mmol/L (22-29); CHLORIDE 103 mmol/L (98-107); CHOL/HDL RATIO 3.1 (3.9-5.7); CHOLESTEROL 148 mg/dL (131-200); CREATININE 0.63 mg/dL (0.60-1.30); GLOMERULAR FILTR. RATE CALC > 60 mL/min (>60); GLUCOSE,RANDOM 95 mg/dL (70-110); HDL CHOLESTEROL 48 mg/dL (40-60); LDL CHOL (CALC.) 91 mg/dL (0-130); POTASSIUM 3.5 mmol/L (3.5-5.1); SODIUM SERUM 139 mmol/L (136-145); THYROID STIMULATING HORMONE 1.12 uIU/mL (0.36-3.74); TOTAL PROTEIN, SERUM 7.7 g/dL (6.4-8.2); TRIGLYCERIDES 46 mg/dL (15-150); UREA NITROGEN, BLOOD 21 mg/dL (7-18)
[2023-02-02 09:06] VITALS: BP 112/68; PULSE 100; RESP 20; TEMP 97.3; O2SAT 96
[2023-02-02] MEDS: HALOPERIDOL 5 MG TABLET PO PRN ×2 (10:30→16:55)
[2023-02-02] MEDS ORDERED: BUSP10TA23 PO (11:25)
[2023-02-02] MEDS ORDERED: MELA5TAB50 PO (11:25)
[2023-02-02] MEDS ORDERED: PRAZ5 PO (11:25)
[2023-02-02] MEDS ORDERED: BREX3TAB PO (11:25)
[2023-02-02] MEDS ORDERED: METF-1211 PO (11:30)
[2023-02-02] MEDS ORDERED: LUMA42CA PO (11:30)
[2023-02-02 12:03] VITALS: BP 120/64; PULSE 68; RESP 19; TEMP 97.3; O2SAT 100
[2023-02-02] MEDS: BusPIRone HCL 10 MG TABLET PO SCH (16:55)
[2023-02-02 20:00] VITALS: BP 110/75; PULSE 81; RESP 18; TEMP 97.8; O2SAT 98
[2023-02-02] MEDS: PRAZOSIN HCL 5 MG CAPSULE PO SCH (20:16)
[2023-02-02] MEDS: MELATONIN 5 MG TABLET PO SCH (20:16)
[2023-02-02] MEDS: BREXPIPRAZOLE 1 MG TABLET PO SCH (20:16)
[2023-02-02] MEDS: TraZODone HCL 100 MG TABLET PO SCH (20:18)
[2023-02-03 05:08] LABS: HEPATITIS C AB (EIA) Reactive (Non Reactive)
[2023-02-03] MEDS: LORazepam 2 MG TABLET PO PRN ×3 (07:00→20:17)
[2023-02-03] MEDS: BusPIRone HCL 10 MG TABLET PO SCH ×2 (08:19→16:30)
[2023-02-03 08:35] VITALS: BP 100/60; PULSE 82; RESP 18; TEMP 97.6; O2SAT 98
[2023-02-03] MEDS ORDERED: GLUCAGON,HUMAN RECOMBINANT 1 MG VIAL IM PRN (10:00)
[2023-02-03] MEDS ORDERED: INSULIN LISPRO 100 UNITS/ML SQ PRN (10:00)
[2023-02-03 11:46] LABS: GLUCOMETER DEV NAME(LOC) BV3S.; GLUCOSE,POINT OF CARE 114 MG/DL (70-110)
[2023-02-03 17:10] LABS: GLUCOMETER DEV NAME(LOC) BV3S.; GLUCOSE,POINT OF CARE 112 MG/DL (70-110)
[2023-02-03] MEDS: HALOPERIDOL 5 MG TABLET PO PRN (17:11)
[2023-02-03 20:00] VITALS: BP 94/62; PULSE 95; RESP 18; TEMP 97.3; O2SAT 98
[2023-02-03] MEDS ORDERED: INFLUENZA VIRUS VACCINE QVS 2023-24 (6MO+)/PF 60 MCG/0.5 ML SYRINGE IM. ONE (20:00)
[2023-02-03] MEDS: TraZODone HCL 100 MG TABLET PO SCH (20:17)
[2023-02-03] MEDS: PRAZOSIN HCL 5 MG CAPSULE PO SCH (20:17)
[2023-02-03] MEDS: BREXPIPRAZOLE 1 MG TABLET PO SCH (20:17)
[2023-02-03] MEDS: MELATONIN 5 MG TABLET PO SCH (20:17)
[2023-02-03 21:40] LABS: GLUCOMETER DEV NAME(LOC) BV3S.; GLUCOSE,POINT OF CARE 104 MG/DL (70-110)
[2023-02-04] MEDS: LORazepam 2 MG TABLET PO PRN (03:47)
[2023-02-04 06:51] LABS: GLUCOMETER DEV NAME(LOC) BV3S.; GLUCOSE,POINT OF CARE 87 MG/DL (70-110)
[2023-02-04] MEDS: BusPIRone HCL 10 MG TABLET PO SCH (08:20)
[2023-02-04 08:52] VITALS: BP 100/61; PULSE 69; RESP 18; TEMP 97.6; O2SAT 98
[2023-02-04] MEDS ORDERED: BREX1TAB PO (11:05)
== END 2023-02-04 13:35 | disposition home or self-care (01) | DRG 750 ==
LOC: B3A 14:00
PROVIDERS: ADMIT Psychiatry & Neurology Psychiatry; ATTEND Psychiatry & Neurology Psychiatry
DX: F25.0 Schizoaffective disorder, bipolar type (principal); E11.9 Type 2 diabetes mellitus without complications; R45.851 Suicidal ideations; F43.12 Post-traumatic stress disorder, chronic; J30.9 Allergic rhinitis, unspecified; F15.90 Other stimulant use, unspecified, uncomplicated; G47.00 Insomnia, unspecified; E78.5 Hyperlipidemia, unspecified; Z79.84 Long term (current) use of oral hypoglycemic drugs; Z79.899 Other long term (current) drug therapy
CPT/HCPCS: 80053; 80061; 82962; 84439; 84443; 85025; 86803; 87340; Q9967